=== PATIENT | female | born 1980 ===

== ENCOUNTER 2017-01-03 21:44 | Emergency (ER) | payer MEDICAID ==
[2017-01-03 23:42] LABS: PH,URINE 6.5 (5.0-8.0); URINE BILIRUBIN NEGATIVE (NEGATIVE); URINE BLOOD 1+ (NEGATIVE); URINE GLUCOSE (UA) NEGATIVE (NEGATIVE); URINE LEUKOCYTE ESTERASE TRACE (NEGATIVE); URINE NITRITE NEGATIVE (NEGATIVE); URINE PROTEIN NEGATIVE (NEGATIVE); URINE UROBILINOGEN NORMAL (0-1 mg/dl)
[2017-01-03 23:45] LABS: HCG,QUALITATIVE URINE NEGATIVE
[2017-01-04 00:01] LABS: URINE APPEARANCE SL CLOUDY; URINE COLOR YELLOW
[2017-01-04 00:36] LABS: URINE RBC 0-2 /hpf
[2017-01-04] MEDS ORDERED: CEFTRIAXONE SODIUM 250 MG VIAL ONE (01:46)
[2017-01-04] MEDS ORDERED: ONDANSETRON 4 MG ODT TAB ONE (01:47)
[2017-01-04] MEDS ORDERED: AZITHROMYCIN 250 MG TABLET ONE (01:47)
[2017-01-09 08:32] LABS: N.GONORRHOEAE BD NEGATIVE; SOURCE URINE
[2017-01-09 08:34] LABS: CHLAMYDIA BD NEGATIVE
== END 2017-01-04 02:16 | disposition home or self-care (01) ==
LOC: ED 21:44
DX: N72 Inflammatory disease of cervix uteri (principal); E11.8 Type 2 diabetes mellitus with unspecified complications
CPT/HCPCS: 87491; 87591; 81025; 81001; 87210; 99283 ×2; 96372; J0696; A9270 ×2